=== PATIENT | male | born 1990 | race Caucasian/White ===

== ENCOUNTER 2016-08-18 09:12 | Emergency (ER) | payer OTHER ==
[~2016-08-18] VITALS: Ht 177.8 cm; Wt 129.7 kg
[2016-08-18 10:07] VITALS: BP 148/90
== END 2016-08-18 10:08 | disposition home or self-care (01) ==
LOC: ED 09:12
DX: J02.9 Acute pharyngitis, unspecified (principal)

== ENCOUNTER 2016-09-07 20:15 | Emergency (ER) | payer OTHER ==
[2016-09-07 23:05] VITALS: BP 147/107
== END 2016-09-07 23:05 | disposition home or self-care (01) ==
LOC: ED 20:15
DX: J02.9 Acute pharyngitis, unspecified (principal); R03.0 Elevated blood-pressure reading, without diagnosis of hypertension
CPT/HCPCS: J1100

== ENCOUNTER 2016-10-12 16:44 | Emergency (ER) | payer OTHER ==
[~2016-10-12] VITALS: Ht 182.9 cm; Wt 132.9 kg
[2016-10-12 18:43] VITALS: BP 144/86
== END 2016-10-12 18:43 | disposition home or self-care (01) ==
LOC: ED 16:44
DX: J03.90 Acute tonsillitis, unspecified (principal); R03.0 Elevated blood-pressure reading, without diagnosis of hypertension
CPT/HCPCS: J1100

== ENCOUNTER 2017-04-25 16:23 | Emergency (ER) | payer OTHER ==
[2017-04-25 16:36] VITALS: BP 148/88
== END 2017-04-25 18:58 | disposition home or self-care (01) ==
LOC: ED 16:23
DX: H57.8 Other specified disorders of eye and adnexa (principal); H57.12 Ocular pain, left eye
CPT/HCPCS: J7030; V2632

== ENCOUNTER 2017-08-16 11:09 | Emergency (ER) | payer OTHER ==
[~2017-08-16] VITALS: Ht 185.4 cm; Wt 144.2 kg
[2017-08-16 11:18] VITALS: Ht 185.4 cm; Wt 144.2 kg
[2017-08-16 13:12] VITALS: BP 148/75
== END 2017-08-16 13:13 | disposition home or self-care (01) ==
LOC: ED 11:09
DX: B34.9 Viral infection, unspecified (principal); I10 Essential (primary) hypertension
CPT/HCPCS: J1885; J7613; J7644; Q0162

== ENCOUNTER 2018-10-28 01:12 | Emergency (ER) | payer OTHER ==
[~2018-10-28] VITALS: Ht 185.4 cm; Wt 149.2 kg
[2018-10-28 01:16] VITALS: Ht 185.4 cm; Wt 149.2 kg
[2018-10-28 02:45] VITALS: BP 148/87
== END 2018-10-28 02:45 | disposition home or self-care (01) ==
LOC: ED 01:12
DX: J20.9 Acute bronchitis, unspecified (principal); F17.210 Nicotine dependence, cigarettes, uncomplicated
CPT/HCPCS: 99406

== ENCOUNTER 2019-01-12 18:32 | Emergency (ER) | payer OTHER ==
[~2019-01-12] VITALS: Ht 185.4 cm; Wt 146.1 kg
[2019-01-12 18:37] VITALS: Ht 185.4 cm; Wt 146.1 kg
[2019-01-12 19:23] VITALS: BP 152/88
== END 2019-01-12 19:23 | disposition home or self-care (01) ==
LOC: ED 18:32
DX: N30.00 Acute cystitis without hematuria (principal)
CPT/HCPCS: 87491; 87591; J0696